=== PATIENT | male | born 1930 | race Caucasian/White ===

== ENCOUNTER 2016-07-03 16:16 | Emergency (ER) | payer MEDICARE, OTHER | END 2016-07-03 17:00 | disposition home or self-care (01) | LOC: ER 16:16 | DX: B02.9 Zoster without complications (principal); K21.9 Gastro-esophageal reflux disease without esophagitis; I10 Essential (primary) hypertension; J44.9 Chronic obstructive pulmonary disease, unspecified; E78.5 Hyperlipidemia, unspecified; Z79.82 Long term (current) use of aspirin; Z79.899 Other long term (current) drug therapy; Z87.891 Personal history of nicotine dependence; Z88.8 Allergy status to other drugs, medicaments and biological substances ==

== ENCOUNTER 2016-07-24 15:16 | Emergency (ER) | payer MEDICARE, OTHER | END 2016-07-24 16:40 | disposition home or self-care (01) | LOC: ER 15:16 | DX: B02.29 Other postherpetic nervous system involvement (principal); J44.9 Chronic obstructive pulmonary disease, unspecified; K21.9 Gastro-esophageal reflux disease without esophagitis; I10 Essential (primary) hypertension; Z87.891 Personal history of nicotine dependence; Z79.82 Long term (current) use of aspirin; Z79.899 Other long term (current) drug therapy; Z88.8 Allergy status to other drugs, medicaments and biological substances ==

== ENCOUNTER 2016-08-10 12:12 | Emergency (ER) | payer MEDICARE, OTHER | END 2016-08-10 12:55 | disposition home or self-care (01) | LOC: ER 12:12 | DX: B02.9 Zoster without complications (principal); I25.10 Atherosclerotic heart disease of native coronary artery without angina pectoris; E78.5 Hyperlipidemia, unspecified; I10 Essential (primary) hypertension; J44.9 Chronic obstructive pulmonary disease, unspecified; M19.90 Unspecified osteoarthritis, unspecified site; K21.9 Gastro-esophageal reflux disease without esophagitis; Z87.891 Personal history of nicotine dependence; Z79.82 Long term (current) use of aspirin; Z79.899 Other long term (current) drug therapy; Z88.8 Allergy status to other drugs, medicaments and biological substances ==